=== PATIENT | female | born 1965 | race Two or more races ===

== ENCOUNTER 2019-08-03 21:52 | Emergency (ER) | payer OTHER ==
[~2019-08-03] VITALS: Ht 157.5 cm; Wt 73.0 kg
[2019-08-03] MEDS ORDERED: SUCR500T PO (23:15)
[2019-08-03] MEDS ORDERED: SEVE0.8P6 PO (23:15)
[2019-08-03] MEDS ORDERED: LORA5SOL30 PO (23:15)
[2019-08-03] MEDS ORDERED: CARV6.2534 PO (23:15)
[2019-08-03] MEDS ORDERED: OMEP10CA5 PO (23:15)
[2019-08-03] MEDS ORDERED: AMIO100T4 PO (23:15)
[2019-08-03] MEDS ORDERED: PARO10TA71 PO (23:15)
[2019-08-03] MEDS ORDERED: BRIM15DR2 OD (23:15)
[2019-08-03] MEDS ORDERED: LEVO25TA4 PO (23:15)
[2019-08-03 23:23] LABS: BASOPHILS % (AUTO) 1.9 % (0.0-2.0); EOSINOPHILS % (AUTO) 1.6 % (1.0-6.0); LYMPHOCYTES # (AUTO) 0.8 K/uL (1.0-4.8); LYMPHOCYTES % (AUTO) 12.7 % (22.0-44.0); MEAN CORPUSCULAR HEMOGLOBIN 34.2 pg (26.0-34.0); MEAN CORPUSCULAR HGB CONC 33.4 G/dL (31.0-37.0); MEAN CORPUSCULAR VOLUME 102 fL (80-100); MONOCYTES # (AUTO) 0.9 K/uL (0.1-1.0); MONOCYTES % (AUTO) 12.8 % (2.0-9.0); NEUTROPHILS # (AUTO) 4.7 K/uL (1.8-7.7); PLATELET COUNT (AUTO) 269 K/uL (150-450); RED BLOOD CELL COUNT(AUTO) 1.97 MIL/uL (4.00-5.20); RED CELL DISTRIBUTION WIDTH 21.7 % (11.5-14.5)
[2019-08-03 23:26] LABS: CALCIUM, TOTAL 8.1 mg/dL (8.8-10.5); CREATININE 2.97 mg/dL (0.60-1.30)
[2019-08-03 23:27] LABS: HEMATOCRIT 20.1 % (36-46); HEMOGLOBIN 6.7 g/dL (12.0-16.0)
[2019-08-03 23:38] LABS: LACTIC ACID 1.1 mmol/L (0.4-2.0)
[2019-08-03 23:40] LABS: ALBUMIN 2.2 g/dL (3.4-5.0); BILIRUBIN,TOTAL 0.6 mg/dL (0.1-1.0); MAGNESIUM 1.7 mg/dL (1.80-2.40); THYROID STIMULATING HORMONE 20.45 uIU/mL (0.36-3.74); TOTAL PROTEIN, SERUM 6.8 g/dL (6.4-8.2)
[2019-08-04] MEDS ORDERED: LEVOTHYROXINE SODIUM 100 MCG VIAL IVP ONE (00:45)
[2019-08-04 02:50] VITALS: BP 115/59
[2019-08-04 03:05] VITALS: BP 97/50
[2019-08-04 03:20] VITALS: BP 99/60
[2019-08-04 03:44] VITALS: BP 108/68
[2019-08-04 03:46] VITALS: BP 108/68
== END 2019-08-04 04:00 | disposition short-term general hospital (02) ==
LOC: EDUNIT# 21:52 → EMS 21:55
DX: D64.9 Anemia, unspecified (principal); E83.42 Hypomagnesemia; E03.9 Hypothyroidism, unspecified; E11.22 Type 2 diabetes mellitus with diabetic chronic kidney disease; I12.0 Hypertensive chronic kidney disease with stage 5 chronic kidney disease or end stage renal disease; N18.6 End stage renal disease; Z99.2 Dependence on renal dialysis; Z79.899 Other long term (current) drug therapy
CPT/HCPCS: 36415; 36430; 71045; 80053; 82550; 83605; 83735; 83880; 84443; 84484; 85025; 86850; 86900; 86901; 86920; 87040; 93005; 96374; 99291; J3490; P9016